=== PATIENT | female | born 1990 | race Caucasian/White ===

== ENCOUNTER → 2019-04-09 08:22 | Outpatient (BNVA) | payer OTHER, SELFPAY | PROVIDERS: Family Provider Family Medicine; Visit Provider Nurse Practitioner Family | DX: J02.0 Streptococcal pharyngitis (principal) | CPT/HCPCS: 87880 ==

== ENCOUNTER 2021-03-01 06:08 | Outpatient (CLI) | payer OTHER, SELFPAY ==
[2021-03-01 09:41] LABS: Adenovirus Not Detected (NOT DETECT); Chlamydia Pneumoniae Not Detected (NOT DETECT); Coronavirus 229E,HKU1,NL63,OC4 Not Detected (NOT DETECT); Human Metapneumovirus Not Detected (NOT DETECT); Human Rhinovirus/Enterovirus Not Detected (NOT DETECT); Influenza A Not Detected (NOT DETECT); Influenza A H1 Not Detected (NOT DETECT); Influenza A H1-2009 Not Detected (NOT DETECT); Influenza A H3 Not Detected (NOT DETECT); Influenza B Not Detected (NOT DETECT); Mycoplasma Pneumoniae Not Detected (NOT DETECT); Parainfluenza Virus Type 1 Not Detected (NOT DETECT); Parainfluenza Virus Type 2 Not Detected (NOT DETECT); Parainfluenza Virus Type 3 Not Detected (NOT DETECT); Parainfluenza Virus Type 4 Not Detected (NOT DETECT); Respiratory Syncytial Virus A Not Detected (NOT DETECT); Respiratory Syncytial Virus B Not Detected (NOT DETECT); SARS-COV-2 Detected (NOT DETECT)
== END 2021-03-01 06:09 | disposition home or self-care (01) ==
LOC: LAB 06:09
PROVIDERS: PCP Family Medicine; Visit Provider Family Medicine
DX: Z20.828 Contact with and (suspected) exposure to other viral communicable diseases (principal)
CPT/HCPCS: 87635

== ENCOUNTER 2024-07-31 14:44 | Emergency (ER) | payer OTHER, SELFPAY ==
[2024-07-31 15:01] VITALS: BP 128/82; PULSE 126; RESP 17; TEMP 36.4; O2SAT 98; BMI 22.1
[2024-07-31 16:01] LABS: Bilirubin Urine Negative (Negative); Blood Urine Negative (Negative); Glucose Urine UA Negative (Normal); Ketones Urine Negative (Negative); Leukocyte Esterase Urine Negative (Negative); Nitrate Urine Negative (Negative); Protein Urine Negative (Negative); Specific Gravity, Urine 1.004 (1.005-1.030); Urine Appearance Clear (CLEAR); Urine Color Yellow (Yellow); Urobilinogen Urine 0.2 mg/dL (Negative); pH Urine 6.5 (5-7)
[2024-07-31 16:06] LABS: Add Urine Microscopic? YES; Bacteria Urine None Seen /hpf; Hyaline Casts Urine 0-4 /lpf; RBC Urine 0-2 /hpf (0-2); Squamous Epithelial Cell Urine 0-5 /hpf (0-5); WBC Urine 0-5 /hpf (0-5)
[2024-07-31 17:14] LABS: Basophils % 0.6 %; Eosinophils % 0.4 %; Hematocrit 40.1 % (36-47); Lymphocytes # 1.8 10^3/uL (0.8-4.8); Lymphocytes % 26.8 %; Mean Corpuscular HGB Conc 31.9 g/dL (30-55); Mean Corpuscular Hemoglobin 30.1 pg (27-33); Mean Corpuscular Volume 94.4 fl (85-98); Mean Platelet Volume 9.8 fL (7.4-10.4); Monocytes # 0.5 10^3/uL (0.2-0.9); Monocytes % 7.1 %; Nucleated Red Blood Cells % 0 %; Platelet Count 277 10^3/cmm (157-399); Red Blood Count 4.25 10^6/uL (3.85-5.65); Red Cell Distribution Width 12.5 % (12.1-15.1); White Blood Count 6.78 10^3/uL (3.29-11.43)
[2024-07-31 17:33] LABS: Alanine Aminotransferase 12 U/L (0-33); Albumin Level 4.8 g/dL (3.5-5.2); Alkaline Phosphatase 43 U/L (35-105); Anion Gap 17.1 (5-19); Aspartate Amino Transferase 16 U/L (0-32); Blood Urea Nitrogen 10 mg/dL (6-20); Calcium 9.1 mg/dL (8.5-10.5); Carbon Dioxide 22 mmol/L (22-29); Chloride 106 mmol/L (98-107); Creatinine Clr Calc Pharmacy 102.3111; Globulin 2.4 g/dL (1.3-4.6); Glomerular Filtration Rate 94.7 mL/min (90-130); Glucose 100 mg/dL (65-115); HCG, Serum Qual Negative (Negative); Lipase 29 U/L (13-60); Osmolality Calculated 291 mOsm/kg (285-295); Potassium 4.1 mmol/L (3.5-5.1); Sodium 141 mmol/L (136-145); Total Bilirubin 0.3 mg/dL (0.15-1.2); Total Protein 7.2 g/dL (6.6-8.7)
--- NOTE | 2024-07-31 18:42 | CTR_ITS ---
PROCEDURE INFORMATION: Exam: CT Abdomen And Pelvis With Contrast Exam date and time: 07/31/2024 7:04 PM Age: 34 years old Clinical indication: Abdominal pain; Localized; Right lower quadrant (rlq) TECHNIQUE: Imaging protocol: Computed tomography of the abdomen and pelvis with contrast. Radiation optimization: All CT scans at this facility use at least one of these dose optimization techniques: automated exposure control; mA and/or kV adjustment per patient size (includes targeted exams where dose is matched to clinical indication); or iterative reconstruction. Contrast material: OMNIPAQUE 350; Contrast volume: 100 ml; Contrast route: INTRAVENOUS (IV); COMPARISON: No relevant prior studies available. RADIATION DOSE METRICS: Total DLP (mGy-cm): 381.13 FINDINGS: Lungs: Unremarkable. Liver: Normal. No mass. Gallbladder and biliary ducts: Normal. No calcified stones. No ductal dilation. Pancreas: Normal. No ductal dilation. Spleen: Normal. No splenomegaly. Adrenal glands: Normal. No mass. Kidneys and ureters: Punctate bilateral nonobstructing renal calculi. Subcentimeter hypodensity within right kidney, incompletely characterized but may represent simple cysts. No further imaging follow-up is required. Stomach and bowel: Extensive colonic stool burden. Appendix: Appendix is unremarkable. Intraperitoneal space: Unremarkable. No free air. No significant fluid collection. Vasculature: Unremarkable. No abdominal aortic aneurysm. Lymph nodes: Unremarkable. No enlarged lymph nodes. Urinary bladder: Urinary bladder is partially compressed by right adnexal cyst. Reproductive: Uterus is present. Simple appearing 6.7 cm right adnexal cyst. This exerts mass effect on right lower quadrant structures and urinary bladder. Bones/joints: Unremarkable. No acute fracture. Soft tissues: Unremarkable. CT/CT abdomen pelvis w con* [id number] IMPRESSION: 1. Simple appearing 6.7 cm right adnexal cyst. No further imaging is recommended. (Reference: Cheng). 2. Nonobstructing bilateral nephrolithiasis. COMMENTS: Consistent with the [employer]'s Incidental Findings Committee white paper (J Am Hussain Radiol 2018): Any incidental renal lesion less than 1 cm or classified as too small to characterize, or any incidental cystic renal lesion characterized as simple-appearing, is likely benign. No follow-up imaging is recommended for these lesions per consensus recommendations based on imaging criteria. REFERENCES: Cheng et al. Management of Incidental Adnexal Findings on CT and MRI: A White Paper of the ACR Incidental Findings Committee, J Am Hussain Radiol. 2019;17(2):248-254.
--- NOTE | 2024-07-31 18:46 | USR_ITS ---
PROCEDURE INFORMATION: Exam: US Pelvis, Complete, Non-Obstetric Exam date and time: 07/31/2024 6:57 PM Age: 34 years old Clinical indication: Pelvic pain; G3-p3-a1-l3 (one set of twins, one miscarriage) presenting with right lower quadrant pain. ; Additional info: Rightadnexal pain TECHNIQUE: Imaging protocol: Transabdominal pelvic nonobstetric ultrasound. Complete exam. Real time ultrasound with image documentation. COMPARISON: No relevant prior studies available. FINDINGS: Uterus: Uterus demonstrates normal size and echotexture. It measures 8.1 x 6.7 x 4.6 cm. Endometrium is within normal limits measures up to 8 mm. Right ovary/adnexa: Right ovary measures 7.4 x 5.6 x 6.8 cm. It demonstrates normal color Doppler flow. Complex right ovarian cyst measures 5.7 x 4.5 x 6.5 cm. Left ovary/adnexa: Left ovary demonstrates unremarkable sonographic appearance and it measures 3.5 x 2.7 x 2.4 cm. It demonstrates normal color Doppler flow. Intraperitoneal space: No free pelvic fluid. Urinary bladder: Urinary bladder was not visualized. US/US pelvic complete* [id number] IMPRESSION: 1. Negative for ovarian torsion. 2. Complex right ovarian cysts measuring up to 6.5 cm.Recommend 6-12 week follow-up to ensure resolution. If the cyst is unchanged, then hemorrhagic cyst is unlikely, and continued follow-up with either US or MR should then be considered. If these studies do not confirm an endometrioma or dermoid, then surgical evaluation should be considered.
--- NOTE | 2024-07-31 18:56 | ED_ITS ---
HPI - Abdominal Pain 2 General: Chief Complaint: Abdominal Pain Stated Complaint: right lower abdominal pain Time Seen by Provider: 07/31/24 18:35 History of Present Illness: Healthy 34-year-old female who presents emergency room with right lower quadrant abdominal pain. This has been intermittent for a few days now. Much worse today while she was at work. Said it became quite severe. Helps when she raises her legs. She says when she pushes on it it kind of helps the pain but when she lets go it hurts. No abdominal surgical history. No dysuria. No fevers. Related Data Date of Last Menstrual Period: 07/01/24 Home Medications ?Medication ?Instructions ?Recorded ?Confirmed norgestimate 0.18 mg/0.215mg/0.25 1 tab PO QDAY 06/24/19 mg-ethinyl estradiol 0.025 mg tablet (Cap-Ex-Gdosocxa) ulohzzfqoaisz-OL-zfswwwnbvdril-guaif ml PO 06/24/19 5 mg-10 mg-325 mg-200mg/15 mL liq (Tylenol Cold and Flu Severe) Previous Rx's ?Medication ?Instructions ?Recorded amoxicillin 875 mg-potassium 1 tab PO BID sinusitis #1 4 tabs 06/24/19 clavulanate 125 mg tablet (Augmentin) Allergies Allergy/AdvReac Type Severity Reaction Status Date / Time sulfamethoxazole (From AdvReac upset Verified 06/24/19 08:29 Bactrim) stomach trimethoprim (From Bactrim) AdvReac upset Verified 06/24/19 08:29 stomach Review of Systems 2 Narrative: Constitutional symptoms: Negative except as documented in HPI. Skin symptoms: Negative except as documented in HPI. Eye symptoms: Negative except as documented in HPI. ENMT symptoms: Negative except as documented in HPI. Respiratory symptoms: Negative except as documented in HPI. Cardiovascular symptoms: Negative except as documented in HPI. Gastrointestinal symptoms: Negative except as documented in HPI. Genitourinary symptoms: Negative except as documented in HPI. Musculoskeletal symptoms: Negative except as documented in HPI. Neurologic symptoms: Negative except as documented in HPI. Psychiatric symptoms: Negative except as documented in HPI. Endocrine symptoms: Negative except as documented in HPI. [facility] 2 Female Reproductive History: Date of last menstrual period: 07/01/24 Physical Exam 2 Narrative: EXAM NARRATIVE: General: Alert, no acute distress. Skin: Warm, dry. Head: Normocephalic, atraumatic. Neck: Supple, trachea midline. Eye: Extraocular movements are intact. Ears, nose, mouth and throat: mucosa moist. Cardiovascular: Regular, Normal peripheral perfusion. Respiratory: Lungs are clear to auscultation, respirations are non-labored, breath sounds are equal, Symmetrical chest wall expansion. Gastrointestinal: Soft, right lower quadrant abdominal pain, Non distended Musculoskeletal: Normal ROM, no deformity. Neurological: Alert and oriented, No focal neurological deficit observed. Psychiatric: Cooperative, appropriate mood & affect. Course 2 Vital Signs: Vital signs: Vital Signs Temperature 97.5 F L 07/31/24 15:01 Pulse Rate 126 H 07/31/24 15:01 Respiratory Rate 17 07/31/24 15:01 Blood Pressure 128/82 07/31/24 15:01 Pulse Oximetry 98 07/31/24 15:01 Oxygen Delivery Me thod Room Air 07/31/24 15:01 MDM - Abdominal Pain Medical Decision Making Medical decision making: Differential diagnosis for this patient with right lower quadrant abdominal pain including but not limited to and based on the above HPI, review of systems and physical exam: Ureterolithiasis. Urinary tract infection. Appendicitis. colitis. small bowel obstruction. Crohn's flare. Pancreatitis. Cholelithiasis or cholecystitis. Hepatitis. Diverticulitis. Constipation. ovarian cyst. ovarian torsion Workup: Orders were placed to evaluate differential diagnosis based on the above differential, HPI and exam: Lab Review: Laboratory results were reviewed and interpreted by myself the emergency room physician. No leukocytosis. No anemia. No renal failure. Urinalysis is negative for infection or hematuria. CT of the abdomen pelvis with contrast: 6.7 cm right adnexal cyst. Nonobstructing kidney stones. This was reviewed and interpreted by myself the emergency room physician. I also reviewed the radiology report. Ultrasound pelvis: No ovarian torsion. Complex right ovarian cyst measuring up to 6.5 cm. 6 to 12-week follow-up for resolution. This was reviewed and interpreted by myself the emergency room physician. I also reviewed the radiology report. I reviewed the patient's medical record Reexamination: Patient still with some right adnexal pain. We discussed findings. She will follow-up with her accident report clerk and return to the emergency room if pain worsens. No increased work of breathing. No altered mental status. Declines any pain control at this time. Assessment and plan: Ovarian cyst - Discharged home - Discussed plan with patient. Answered any questions. - Evaluation and treatment of this problem were appropriate in the emergency setting. Lab Data 07/31/24 16:43 07/31/24 16:43 Labs/Radiology: Radiology Impressions Abdomen/Pelvis CT 07/31/24 18:42 IMPRESSION: 1. Simple appearing 6.7 cm right adnexal cyst. No further imaging is recommended. (Reference: Cheng). 2. Nonobstructing bilateral nephrolithiasis. COMMENTS: Consistent with the [employer]'s Incidental Findings Committee white paper (J Am Hussain Radiol 2018): Any incidental renal lesion less than 1 cm or classified as too small to characterize, or any incidental cystic renal lesion characterized as simple-appearing, is likely benign. No follow-up imaging is recommended for these lesions per consensus recommendations based on imaging criteria. REFERENCES: Cheng et al. Management of Incidental Adnexal Findings on CT and MRI: A White Paper of the ACR Incidental Findings Committee, J Am Hussain Radiol. 2019;17(2):248-254. Pelvis Ultrasound 07/31/24 18:46 IMPRESSION: 1. Negative for ovarian torsion. 2. Complex right ovarian cysts measuring up to 6.5 cm.Recommend 6-12 week follow-up to ensure resolution. If the cyst is unchanged, then hemorrhagic cyst is unlikely, and continued follow-up with either US or MR should then be considered. If these studies do not confirm an endometrioma or dermoid, then surgical evaluation should be considered. Laboratory Results WBC 6.78 10^3/uL (3.29-11.43) 07/31/24 16:43 RBC 4.25 10^6/uL (3.85-5.65) 07/31/24 16:43 Hgb 12.80 g/dL (11.27-16.99) 07/31/24 16:43 Hct 40.1 % (36-47) 07/31/24 16:43 MCV 94.4 fl (85-98) 07/31/24 16:43 MCH 30.1 pg (27-33) 07/31/24 16:43 MCHC 31.9 g/dL (30-55) 07/31/24 16:43 RDW 12.5 % (12.1-15.1) 07/31/24 16:43 Plt Count 277 10^3/cmm (157-399) 07/31/24 16:43 MPV 9.8 fL (7.4-10.4) 07/31/24 16:43 Neut % (Auto) 65.0 % 07/31/24 16:43 Lymph % (Auto) 26.8 % 07/31/24 16:43 Emanuel % (Auto) 7.1 % 07/31/24 16:43 Eos % (Auto) 0.4 % 07/31/24 16:43 Baso % (Auto) 0.6 % 07/31/24 16:43 Neut # (Auto) 4.40 10^3/uL (1.8-7.7) 07/31/24 16:43 Lymph # (Auto) 1.8 10^3/uL (0.8-4.8) 07/31/24 16:43 Emanuel # (Auto) 0.5 10^3/uL (0.2-0.9) 07/31/24 16:43 Eos # (Auto) 0.0 10^3/uL (0.0-0.8) 07/31/24 16:43 Baso # (Auto) 0.0 10^3/uL (0.0-0.1) 07/31/24 16:43 Nucleated RBC % (auto) 0 % 07/31/24 16:43 Nucleated RBCs # 0.0 /100WBC 07/31/24 16:43 Sodium 141 mmol/L (136-145) 07/31/24 16:43 Potassium 4.1 mmol/L (3.5-5.1) 07/31/24 16:43 Chloride 106 mmol/L (98-107) 07/31/24 16:43 Carbon Dioxide 22 mmol/L (22-29) 07/31/24 16:43 Anion Gap 17.1 (5-19) 07/31/24 16:43 BUN 10 mg/dL (6-20) 07/31/24 16:43 Creatinine 0.7 mg/dL (0.5-0.9) 07/31/24 16:43 GFR Calculation 94.7 mL/min (90-130) 07/31/24 16:43 Glucose 100 mg/dL (65-115) 07/31/24 16:43 Calculated Osmolality 291 mOsm/kg (285-295) 07/31/24 16:43 Calcium 9.1 mg/dL (8.5-10.5) 07/31/24 16:43 Total Bilirubin 0.3 mg/dL (0.15-1.2) 07/31/24 16:43 AST 16 U/L (0-32) 07/31/24 16:43 ALT 12 U/L (0-33) 07/31/24 16:43 Alkaline Phosphatase 43 U/L (35-105) 07/31/24 16:43 Total Protein 7.2 g/dL (6.6-8.7) 07/31/24 16:43 Albumin 4.8 g/dL (3.5-5.2) 07/31/24 16:43 Globulin 2.4 g/dL (1.3-4.6) 07/31/24 16:43 Lipase 29 U/L (13-60) 07/31/24 16:43 HCG, Qual Negative (Negative) 07/31/24 16:43 Urine Color Yellow (Yellow) 07/31/24 15:45 Urine Appearance Clear (CLEAR) 07/31/24 15:45 Urine pH 6.5 (5-7) 07/31/24 15:45 Ur Specific [place] 1.004 (1.005-1.030) L 07/31/24 15:45 Urine Protein Negative (Negative) 07/31/24 15:45 Urine Glucose (UA) Negative (Normal) 07/31/24 15:45 Urine Ketones Negative (Negative) 07/31/24 15:45 Urine Blood Negative (Negative) 07/31/24 15:45 Urine Nitrate Negative (Negative) 07/31/24 15:45 Urine Bilirubin Negative (Negative) 07/31/24 15:45 Urine Urobilinogen 0.2 mg/dL (Negative) 07/31/24 15:45 Ur Leukocyte Esterase Negative (Negative) 07/31/24 15:45 Urine RBC 0-2 /hpf (0-2) 07/31/24 15:45 Urine WBC 0-5 /hpf (0-5) 07/31/24 15:45 Ur Squamous Epith Cells 0-5 /hpf (0-5) 07/31/24 15:45 Amorphous Sediment Not Reportable 07/31/24 15:45 Urine Bacteria None seen /hpf (NONE) 07/31/24 15:45 Hyaline Casts 0-4 /lpf H 07/31/24 15:45 All radiology interpretation(s) finalized by discharge Discharge Plan Discharge Patient Disposition: Home Clinical Impression: Ovarian cyst Condition: Stable Prescriptions: No Action Tylenol Cold and Flu Severe [id number] mg/15 mL liquid PO amoxicillin-pot clavulanate [Augmentin] 875-125 mg tablet 1 tab PO BID Qty: 14 0RF norgestimate-ethinyl estradiol [Goq-Hq-Pupexplb] 0.18/0.215/0.25 mg-25 mcg tablet 1 tab PO QDAY Discharge Orders: Discharge ED (Routine); Ordered 07/31/24 Ordered By: Roopa Vizcarra Referrals: [facility], [Primary Care Provider] Discharge Diet: Usual diet Discharge Activity: Increase activity as tolerated Patient Instructions: Ovarian Cyst (ED), Opioid Safety, Pain Management Activity Restrictions/Additional Instructions: Please follow with your accident report clerk in the next 4 to 7 days. If you develop worsening pain, fevers or other worrisome symptoms please return to the emergency room. Thank you for choosing [facility] for your healthcare needs today. You have been screened and evaluated and felt safe for discharge. Health conditions do change or evolve sometimes and as such it is important that you follow up with your Primary Doctor to be re checked, 3-5 days is a general good time frame for follow up. 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
[2024-07-31] MEDS: iohexol 350 mg/mL 500 mL Btl (per mL) IV (19:05)
[2024-07-31 20:10] VITALS: BP 119/73; PULSE 98; O2SAT 97
[2024-07-31 20:17] VITALS: BP 119/73; PULSE 98; O2SAT 97
== END 2024-07-31 20:17 | disposition home or self-care (01) ==
PROVIDERS: Family Medicine; Emergency Provider Emergency Medicine
DX: N83.201 Unspecified ovarian cyst, right side (principal)
CPT/HCPCS: 36415; 74177; 76856; 80053; 81001; 83690; 84703; 85025; 99285